=== PATIENT | male | born 1950 | race Caucasian/White ===

== ENCOUNTER 2018-08-22 10:59 | Emergency (ER) | payer MEDICARE ==
[2018-08-22 11:35] LABS: ABSOLUTE BASOPHILS # (AUTO) 0.1 10^3/uL (0.0-0.2); ABSOLUTE LYMPHOCYTES (AUTO) 1.3 10^3/uL (0.5-4.7); ABSOLUTE MONOCYTES (AUTO) 0.7 10^3/uL (0.1-1.4); ABSOLUTE NEUT (AUTO) 5.3 10^3/uL (1.7-8.2); BASOPHILS % (AUTO) 0.9 % (0-2); EOSINOPHILS % (AUTO) 0.2 % (0-6); HEMATOCRIT 44.6 % (37.9-51.0); HEMOGLOBIN 15.4 g/dL (13.5-17.0); LYMPHOCYTES % (AUTO) 17.9 % (13-45); MEAN CORPUSCULAR HEMOGLOBIN 43.9 pg (27.0-33.4); MEAN CORPUSCULAR HGB CONC 34.5 g/dL (32.0-36.0); MONOCYTES % (AUTO) 9.1 % (3-13); PLATELET COUNT 204 10^3/uL (150-450); RED BLOOD COUNT 3.51 10^6/uL (4.35-5.55); RED CELL DISTRIBUTION WIDTH 13.6 % (11.5-14.0); SEGMENTED NEUTROPHILS % (AUTO) 71.9 % (42-78); TOTAL CELLS COUNTED % (AUTO) 100 %; WHITE BLOOD COUNT 7.3 10^3/uL (4.0-10.5)
[2018-08-22 11:41] LABS: MEAN CORPUSCULAR VOLUME 127 fl (80-97)
[2018-08-22 12:04] LABS: OVALOCYTES SLIGHT; PLATELET COMMENT ADEQUATE; POIKILOCYTOSIS SLIGHT
--- NOTE | 2018-08-22 12:35 | EKG REPORT ---
SEVERITY:- ABNORMAL ECG - SINUS RHYTHM VENTRICULAR BIGEMINY INFERIOR INFARCT, AGE INDETERMINATE : Confirmed by: Tomi Barboza 22-Aug-2018 12:34:29
--- NOTE | 2018-08-22 12:38 | RADIOLOGY REPORT (SQ) ---
EXAM DESCRIPTION: CHEST SINGLE VIEW COMPLETED DATE/TIME: 08/22/2018 12:26 pm REASON FOR STUDY: weakness COMPARISON: 06/18/2016 EXAM PARAMETERS: NUMBER OF VIEWS: One view. TECHNIQUE: Single frontal radiographic view of the chest acquired. RADIATION DOSE: NA LIMITATIONS: None. FINDINGS: LUNGS AND PLEURA: Stable calcified granuloma right lower lobe. No opacities, masses or p neumothorax. No pleural effusion. MEDIASTINUM AND HILAR STRUCTURES: No masses. Contour normal. HEART AND VASCULAR STRUCTURES: Stable appearance. BONES: No acute findings. HARDWARE: None in the chest. OTHER: No other significant finding. IMPRESSION: 1. No significant interval changes since the prior study dated 06/18/2016. No acute fin dings. TECHNICAL DOCUMENTATION: JOB ID: [id number] [employer]- All Rights Reserved Reading location - IP/workstation name: [email or web address]
[2018-08-22 12:45] LABS: ALANINE AMINOTRANSFERASE 29 U/L (21-72); ALBUMIN 3.6 g/dL (3.5-5.0); ALKALINE PHOSPHATASE 72 U/L (38-126); ANION GAP 6 (5-19); ASPARTATE AMINO TRANSFERASE 41 U/L (17-59); BILIRUBIN,DIRECT 0.3 mg/dL (0.0-0.4); BILIRUBIN,TOTAL 0.8 mg/dL (0.2-1.3); BLOOD UREA NITROGEN 15 mg/dL (7-20); CALCIUM 9.3 mg/dL (8.4-10.2); CARBON DIOXIDE 27 mmol/L (22-30); CHLORIDE 102 mmol/L (98-107); CREATINE KINASE 26 U/L (55-170); GLUCOSE 99 mg/dL (75-110); POTASSIUM 4.9 mmol/L (3.6-5.0); SODIUM 135.3 mmol/L (137-145); TOTAL PROTEIN 5.8 g/dL (6.3-8.2)
[2018-08-22] MEDS ORDERED: NORMAL SALINE 1000 ML 1,000 ML IV ONE (12:49)
[2018-08-22 12:57] LABS: CREATINE KINASE MB 0.32 ng/mL (<4.55)
[2018-08-22 12:59] LABS: TROPONIN I < 0.012 ng/mL
--- NOTE | 2018-08-22 13:23 | ER Document Report ---
ED General - General Chief Complaint: General Weakness Stated Complaint: WEAKNESS Time Seen by Provider: 08/22/18 11:46 Primary Care Provider: YESI DELA CRUZ MD [ACTIVE STAFF] - Follow up as needed MOY FAIRBANKS MD [ACTIVE STAFF] - Follow up as needed Notes: Patient is a 68-year-old male presents to the emergency department for generalized weakness for the last 2 days. [facility] which he uses as his primary care provider and had an EKG performed. States they told him that his EKG was "abnormal." Patient states he needs [facility] told him to report to the emergency room. Patient is denying any chest pain, shortness of breath, diaphoresis, nausea, vomiting. Past medical history: Hypertension, coronary artery disease with stent placement, "I produce too many red blood cells", stent placed in right upper leg Medications: Lisinopril, hydroxyurea Allergies: None TRAVEL OUTSIDE OF THE [place] IN LAST 30 DAYS: No - Related Data Allergies/Adverse Reactions: No Known Allergies Allergy (Unverified 06/18/16 11:55) Past Medical History - General Information source: Patient - Social History Smoking Status: Current Every Day Smoker Frequency of alcohol use: Heavy Drug Abuse: Marijuana Family History: CAD - His father had an [place] Patient has suicidal ideation: No Patient has homicidal ideation: No - Past Medical History Cardiac Medical History: Reports: Hx Heart Attack, Hx Hypertension, Hx Peripheral Vascular Disease Renal/ Medical History: Denies: Hx Peritoneal Dialysis Past Surgical History: Reports: Hx Cardiac Catheterization - with stent in right coronary artery, Hx Vascular Surgery - right groin stent - Immunizations Hx Diphtheria, Pertussis, Tetanus Vaccination: Yes Review of Systems - Review of Systems Constitutional: See HPI EENT: No symptoms reported Cardiovascular: See HPI Respiratory: See HPI Gastrointestinal: No symptoms reported Genitourinary: No symptoms reported Male Genitourinary: No symptoms reported Musculoskeletal: No symptoms reported Skin: No symptoms reported Hematologic/Lymphatic: See HPI Neurological/Psychological: No symptoms reported Physical Exam - Vital signs Vitals: Resp Pulse Ox 15 100 08/22/18 11:03 08/22/18 11:03 - Notes Notes: GENERAL: Alert, interacts well. No acute distress. HEAD: Normocephalic, atraumatic. EYES: Pupils equal, round, and reactive to light. Extraocular movements intact. ENT: Oral mucosa moist, tongue midline. NECK: Full range of motion. Supple. Trachea midline. LUNGS: Clear to auscultation bilaterally, no wheezes, rales, or rhonchi. No respiratory distress. HEART: Regular rate and rhythm. No murmur ABDOMEN: Soft, non-tender. Non-distended. Bowel sounds present in all 4 quadrants. EXTREMITIES: Moves all 4 extremities spontaneously. No edema, normal radial and dorsalis pedis pulses bilaterally. No cyanosis. 5 out of 5 strength all 4 extremities. BACK: no cervical, thoracic, lumbar midline tenderness. No saddle anesthesia, normal distal neurovascular exam. NEUROLOGICAL: Alert and oriented x3. Normal speech. cranial nerves II through XII grossly intact PSYCH: Normal affect, normal mood. SKIN: Warm, dry, normal turgor. No rashes or lesions noted. Course - Re-evaluation Re-evalutation: Patient states upon initial evaluation he does not feel weak while lying in bed. States it is only when he gets up and walks around. 08/22/18 13:[address] Marcos who requests follow up in the office tomorrow. Pt. was given one litter of NSS for his hyponatremia. Patient's initial troponin was negative at this time. Again discussed these results with cardiology who continues to recommend follow-up in their office tomorrow. 08/22/18 14:55 Patient's initial EKG shows a sinus rhythm with a rate of 87, QTc 467. Does h ave ventricular bigeminy noted. Upon my evaluation of the patient when I was in his room I did not see any PVCs on his EKG. Repeat 12-lead ordered. Showed a sinus rhythm at a rate of 70, QTc 423, no ST segment changes, no PVCs noted. Patient states he overall does feel better after fluid administration. Discussed importance of following up with cardiology and primary care. Patient voices understanding, stable for discharge. - Vital Signs Vital signs: Temp Pulse Resp BP Pulse Ox 98 F 17 131/89 H 99 08/22/18 15:23 08/22/18 15:23 08/22/18 15:23 08/22/18 15:00 - Laboratory Result Diagrams: 08/22/18 10:33 08/22/18 11:54 Laboratory results interpreted by me: 08/22/18 08/22/18 10:33 11:54 RBC 3.51 L MCV 127 H MCH 43.9 H Sodium 135.3 L Creatine Kinase 26 L Total Protein 5.8 L Discharge - Discharge Clinical Impression: Weakness, Frequent PVCs Condition: Stable Disposition: HOME, SELF-CARE Instructions: PVCs ([facility]), Weakness ([facility]) Additional Instructions: As we discussed you have been seen and treated in the emergency room for generalized weakness and an irregularity to her heartbeat. At this time your labs reveal no signs of abnormalities I have discussed your labs and EKG with security and compliance project manager Dr. Fairbanks who would like you to follow-up in his office within the next 24 hours. Please make sure you call his office to make an appointment. Please immediately return to the emergency room should you develop chest pain, shortness of breath, generalized weakness, any other concerning signs and symptoms. Referrals: MOY FAIRBANKS MD [ACTIVE STAFF] - Follow up as needed YESI DELA CRUZ MD [ACTIVE STAFF] - Follow up as needed
[2018-08-22 16:02] VITALS: BP 131/89
[2018-08-25 13:49] LABS: PATH REVIEW PATHOLOGIST REVIEWED
== END 2018-08-22 15:25 | disposition home or self-care (01) ==
LOC: ER 10:59
DX: R53.1 Weakness (principal); I49.3 Ventricular premature depolarization; I25.10 Atherosclerotic heart disease of native coronary artery without angina pectoris; I10 Essential (primary) hypertension; I25.2 Old myocardial infarction; F17.200 Nicotine dependence, unspecified, uncomplicated; Z95.5 Presence of coronary angioplasty implant and graft; Z79.899 Other long term (current) drug therapy
CPT/HCPCS: 93005; 99285; 36415; 82553; 82550; 85025; 80053; 84484; 71045; 93010; J7030

== ENCOUNTER → 2018-10-03 | Outpatient (CLI) | payer MEDICARE ==
[2018-10-03 09:52] LABS: ABSOLUTE LYMPHOCYTES (AUTO) 1.1 10^3/uL (0.5-4.7); ABSOLUTE MONOCYTES (AUTO) 0.6 10^3/uL (0.1-1.4); BASOPHILS % (AUTO) 0.6 % (0-2); EOSINOPHILS % (AUTO) 0.1 % (0-6); HEMOGLOBIN 14.9 g/dL (13.5-17.0); LYMPHOCYTES % (AUTO) 15.6 % (13-45); MEAN CORPUSCULAR HEMOGLOBIN 45.1 pg (27.0-33.4); MEAN CORPUSCULAR HGB CONC 36.3 g/dL (32.0-36.0); MEAN CORPUSCULAR VOLUME 124 fl (80-97); MONOCYTES % (AUTO) 9.5 % (3-13); PLATELET COUNT 243 10^3/uL (150-450); RED BLOOD COUNT 3.31 10^6/uL (4.35-5.55); RED CELL DISTRIBUTION WIDTH 12.8 % (11.5-14.0); SEGMENTED NEUTROPHILS % (AUTO) 74.2 % (42-78); TOTAL CELLS COUNTED % (AUTO) 100 %; WHITE BLOOD COUNT 6.8 10^3/uL (4.0-10.5)
[2018-10-03 10:01] LABS: ALANINE AMINOTRANSFERASE 34 U/L (21-72); ALKALINE PHOSPHATASE 87 U/L (38-126); ASPARTATE AMINO TRANSFERASE 39 U/L (17-59); BILIRUBIN,DIRECT 0.4 mg/dL (0.0-0.4); BILIRUBIN,TOTAL 0.6 mg/dL (0.2-1.3); TOTAL PROTEIN 6.2 g/dL (6.3-8.2); TRIGLYCERIDES 76 mg/dL (<150)
[2018-10-03 10:13] LABS: DIRECT LDL 102 mg/dL (<100)
[2018-10-03 10:25] LABS: PLATELET COMMENT ADEQUATE; PLATELET LARGE PRESENT
[2018-10-03 10:26] LABS: POIKILOCYTOSIS SLIGHT; POLYCHROMASIA SLIGHT
[2018-10-03 10:27] LABS: OVALOCYTES SLIGHT
== END ==
LOC: OD 08:40
PROVIDERS: ATTEND Specialist
DX: I25.10 Atherosclerotic heart disease of native coronary artery without angina pectoris (principal); I25.2 Old myocardial infarction; I10 Essential (primary) hypertension; I73.9 Peripheral vascular disease, unspecified; D45 Polycythemia vera; F17.210 Nicotine dependence, cigarettes, uncomplicated; R01.1 Cardiac murmur, unspecified; Z98.61 Coronary angioplasty status; Z79.899 Other long term (current) drug therapy
CPT/HCPCS: 36415; 80061; 80076; 85025

== ENCOUNTER 2018-11-05 18:24 | Emergency (ER) | payer MEDICARE ==
[2018-11-05 18:36] VITALS: BP 124/76
--- NOTE | 2018-11-06 08:46 | EKG REPORT ---
SEVERITY:- ABNORMAL ECG - SINUS RHYTHM INFERIOR INFARCT, AGE INDETERMINATE : Confirmed by: Redd Burt MD 06-Nov-2018 08:46:01
== END 2018-11-05 19:00 | disposition left against medical advice (07) ==
LOC: ER 18:24
DX: Z53.21 Procedure and treatment not carried out due to patient leaving prior to being seen by health care provider (principal)
CPT/HCPCS: 93005; 93010

== ENCOUNTER 2018-12-01 10:57 | Emergency (ER) | payer MEDICARE ==
[2018-12-01] MEDS ORDERED: PANTOPRAZOLE SODIUM 40 MG VIAL IV ONE (11:24)
[2018-12-01] MEDS ORDERED: NORMAL SALINE 1000 ML 1,000 ML IV ONE (11:24)
[2018-12-01] MEDS ORDERED: OCTREOTIDE ACETATE INJ/PF 100 MCG/1 ML SDV IV ONE (11:25)
[2018-12-01] MEDS ORDERED: PANTOPRAZOLE SODIUM 40 MG VIAL IV PRN (11:26)
[2018-12-01] MEDS ORDERED: NORMAL SALINE 500 ML with OCTREOTIDE ACETATE 500 MCG IV PRN ×2 (11:26)
[2018-12-01 11:35] LABS: INTERNATIONAL RATION (INR) 1.09; PROTHROMBIN TIME 14.7 SEC (11.4-15.4)
[2018-12-01 11:36] LABS: PARTIAL THROMBOPLASTIN TIME 24.6 SEC (23.5-35.8)
[2018-12-01 11:41] LABS: ABSOLUTE BASOPHILS # (AUTO) 0.1 10^3/uL (0.0-0.2); ABSOLUTE LYMPHOCYTES (AUTO) 0.6 10^3/uL (0.5-4.7); ABSOLUTE MONOCYTES (AUTO) 0.5 10^3/uL (0.1-1.4); ABSOLUTE NEUT (AUTO) 6.9 10^3/uL (1.7-8.2); BASOPHILS % (AUTO) 0.7 % (0-2); HEMATOCRIT 30.1 % (37.9-51.0); HEMOGLOBIN 10.4 g/dL (13.5-17.0); LYMPHOCYTES % (AUTO) 7.6 % (13-45); MEAN CORPUSCULAR HEMOGLOBIN 43.4 pg (27.0-33.4); MEAN CORPUSCULAR HGB CONC 34.6 g/dL (32.0-36.0); MEAN CORPUSCULAR VOLUME 125 fl (80-97); MONOCYTES % (AUTO) 6.4 % (3-13); PLATELET COUNT 202 10^3/uL (150-450); RED CELL DISTRIBUTION WIDTH 12.7 % (11.5-14.0); SEGMENTED NEUTROPHILS % (AUTO) 85.3 % (42-78); TOTAL CELLS COUNTED % (AUTO) 100 %; WHITE BLOOD COUNT 8.1 10^3/uL (4.0-10.5)
--- NOTE | 2018-12-01 11:44 | ER Document Report ---
ED General - General Chief Complaint: GI Bleeding Stated Complaint: VOMITING BLOOD Time Seen by Provider: 12/01/18 11:14 Primary Care Provider: MOY FAIRBANKS MD [ACTIVE STAFF] - Follow up as needed TRAVEL OUTSIDE OF THE [place] IN LAST 30 DAYS: No - HPI Notes: Patient is a 68-year-old male with a long history of alcohol dependence who presents to the emergency department for evaluation of vomiting blood and black stool. All started this morning. He states he had 2 episodes of large bloody, maroon emesis. He has had one episode of melena this morning. He denies any p ain. He states he drinks whiskey daily. He has for "as long as I can remember." He denies any pain at this time. He has never been officially diagnosed with cirrhosis, but admits he does not follow regularly with his doctors. - Related Data Allergies/Adverse Reactions: No Known Allergies Allergy (Verified 11/05/18 18:25) Past Medical History - General Information source: Patient - Social History Smoking Status: Current Every Day Smoker Frequency of alcohol use: Heavy - Whiskey daily Family History: Reviewed & Not Pertinent, CAD - His father had an [place] Patient has suicidal ideation: No Patient has homicidal ideation: No - Medical History Medical History: Other - Polycythemia vera - Past Medical History Cardiac Medical History: Reports: Hx Heart Attack, Hx Hypertension, Hx Peripheral Vascular Disease Renal/ Medical History: Denies: Hx Peritoneal Dialysis Past Surgical History: Reports: Hx Cardiac Catheterization - with stent in right coronary artery, Hx Vascular Surgery - right groin stent - Immunizations Hx Diphtheria, Pertussis, Tetanus Vaccination: Yes Review of Systems - Review of Systems Constitutional: No symptoms reported EENT: No symptoms reported Cardiovascular: No symptoms reported Respiratory: No symptoms reported Gastrointestinal: See HPI Genitourinary: No symptoms reported Musculoskeletal: No symptoms reported Skin: No symptoms reported Neurological/Psychological: No symptoms reported Physical Exam - Vital signs Vitals: Temp Resp BP Pulse Ox 98.6 F 19 109/70 98 12/01/18 11:08 12/01/18 11:08 12/01/18 11:08 12/01/18 11:08 - Notes Notes: Vital signs reviewed, please refer to chart. Pale appearing patient, tachycardic without distress. Head is normocephalic, atraumatic. Pupils equal round, reactive to light. Oral mucosa is moist. He does have blood around his mouth from recent emesis. Neck is supple without meningismus. Heart is tac hycardic with normal S1-S2. Lungs are clear to auscultation bilaterally. Abdomen is soft, nontender, normoactive bowel sounds throughout. Extremities without cyanosis, clubbing. Stool is black and heme positive. Posterior calves are nontender. Peripheral pulses are equal. Skin is warm and dry. Patient is awake, alert, mildly tremulous. Course - Re-evaluation Re-evalutation: 12/01/18 11:41 Patient presents the emergency department for evaluation. He has had large hematemesis as well as melena. I have a strong concern at this time for a variceal bleed. He is started on Protonix and drip orders, octreotide and drip orders. 2 large-bore IVs are established. He is given IV fluids. His initial blood pressure was normal, repeat blood pressure was 84/60. I do not have any lab results back at this time, but I am strongly concerned about this patient needing urgent GI evaluation. I do not have gastroenterology tool honing machine set up operator. Calling [facility] for transfer. 12/01/18 12:[address] Harmon, GI physician at [facility] at noon. The patient was accepted to his care. Transport in route. Patient's blood pressure did respond to IV fluids, current blood pressure is 103/64. CBC is still officially pending as manual differential is being done. I was given oral confirmation by hematology that patient's hemoglobin is 10.4. Given the fact that he has a history of polycythemia vera, I do believe that this represents a significant GI blood loss. Again patient's transfer is pending at this time, but he remains stable. - Vital Signs Vital signs: Temp Pulse Resp BP Pulse Ox 98.6 F 15 84/60 L 99 12/01/18 11:31 12/01/18 11:31 12/01/18 11:31 12/01/18 11:31 - Laboratory Result Diagrams: 12/01/18 11:05 12/01/18 11:05 Laboratory results interpreted by me: 12/01/18 11:05 Sodium 135.4 L Potassium 5.3 H BUN 41 H Glucose 199 H Total Protein 4.8 L Albumin 2.8 L Critical Care Note - Critical Care Note Total time excluding time spent on procedures (mins): 20 Discharge - Discharge Clinical Impression: Upper GI bleed, Hematemesis, Melena Condition: Stable Disposition: [facility] Admitting Provider: Dr. Harmon Referrals: MOY FAIRBANKS MD [ACTIVE STAFF] - Follow up as needed
[2018-12-01 11:48] LABS: ALANINE AMINOTRANSFERASE 38 U/L (21-72); ALBUMIN 2.8 g/dL (3.5-5.0); ALKALINE PHOSPHATASE 46 U/L (38-126); ANION GAP 11 (5-19); ASPARTATE AMINO TRANSFERASE 36 U/L (17-59); BILIRUBIN,DIRECT 0.3 mg/dL (0.0-0.4); BILIRUBIN,TOTAL 0.8 mg/dL (0.2-1.3); BLOOD UREA NITROGEN 41 mg/dL (7-20); CALCIUM 8.8 mg/dL (8.4-10.2); CARBON DIOXIDE 22 mmol/L (22-30); CHLORIDE 102 mmol/L (98-107); GLUCOSE 199 mg/dL (75-110); LIPASE 63.7 U/L (23-300); POTASSIUM 5.3 mmol/L (3.6-5.0); SODIUM 135.4 mmol/L (137-145); TOTAL PROTEIN 4.8 g/dL (6.3-8.2)
[2018-12-01 11:49] LABS: ALCOHOL < 10 mg/dL (NONE DETECTED)
[2018-12-01] MEDS: NORMAL SALINE 1000 ML 1,000 ML IV PRN ×2 (12:07→12:49)
[2018-12-01 12:22] LABS: OVALOCYTES 1+; PLATELET COMMENT ADEQUATE; POLYCHROMASIA SLIGHT; TEAR DROP CELLS SLIGHT
[2018-12-01 13:17] VITALS: BP 106/69
--- NOTE | 2018-12-03 10:22 | EKG REPORT ---
SEVERITY:- ABNORMAL ECG - SINUS TACHYCARDIA INFERIOR INFARCT, AGE INDETERMINATE : Confirmed by: Tomi Barboza 03-Dec-2018 10:21:55
== END 2018-12-01 13:24 | disposition short-term general hospital (02) ==
LOC: ER 10:57
DX: K92.2 Gastrointestinal hemorrhage, unspecified (principal); K92.0 Hematemesis; K92.1 Melena; F17.200 Nicotine dependence, unspecified, uncomplicated
CPT/HCPCS: 93005; 96376; 99285; 96365; 96366; 96368; 86900; 86901; 36415; 86850; 80307; 83690; 85025; 85610; 85730; 80053; 93010; J2354; C9113; A9270; J7030; J7040; S0164